=== PATIENT | male | born 1930 | race Caucasian/White ===

== ENCOUNTER 2017-11-29 14:06 | Outpatient (CLI) | payer MEDICARE ==
[~2017-11-29] VITALS: Ht 172.7 cm; Wt 97.5 kg
[2017-11-29 14:51] LABS: TOTAL HEMOGLOBIN 13.6 G/dl (14.0-18.0)
[2017-11-29] MEDS ORDERED: albuterol 2.5 MG/3 ML nebule NEB ONE (15:15)
== END 2017-11-29 23:59 | disposition home or self-care (01) ==
LOC: RT 14:06
PROVIDERS: ATTEND Internal Medicine
DX: J44.9 Chronic obstructive pulmonary disease, unspecified (principal)
CPT/HCPCS: 85018; 94060; 94727; 94729; 94760; A6446